=== PATIENT | female | born 1940 ===

== ENCOUNTER → 2020-06-04 | Outpatient (CLI) | payer MEDICARE | LOC: PLD 07:32 → LAB SHORT 07:32 | DX: D48.5 Neoplasm of uncertain behavior of skin (principal); C44.622 Squamous cell carcinoma of skin of right upper limb, including shoulder; D04.62 Carcinoma in situ of skin of left upper limb, including shoulder; L57.0 Actinic keratosis | CPT/HCPCS: 88341; 88342 ==